=== PATIENT | female | born 1985 | race American Indian/Alaskan Native ===

== ENCOUNTER 2017-08-27 18:48 | Emergency (ER) | payer MEDICAID ==
[2017-08-27 19:47] VITALS: BP 138/91
[2017-08-27 20:40] LABS: Basophils # (Auto) 0.1 K/mm3 (0.0-0.1); Basophils % (Auto) 0.7 % (0.0-1.8); Eosinophils # (Auto) 0.1 K/mm3 (0.0-0.4); Eosinophils % (Auto) 1.2 % (0.0-4.3); Hematocrit 32.3 % (30.3-42.9); Hemoglobin 10.8 gm/dl (10.1-14.3); Lymphocytes # (Auto) 2.1 K/mm3 (1.2-5.4); Lymphocytes % (Auto) 26.9 % (13.4-35.0); Mean Corpuscular HGB Conc 33 % (30-34); Mean Corpuscular Hemoglobin 28 pg (28-32); Mean Corpuscular Volume 83 fl (79-97); Monocytes # (Auto) 0.4 K/mm3 (0.0-0.8); Monocytes % (Auto) 5.6 % (0.0-7.3); Platelet Count 268 K/mm3 (140-440); Red Cell Distribution Width 15.4 % (13.2-15.2)
[2017-08-27 20:48] LABS: BUN/Creatinine Ratio 10; Blood Urea Nitrogen 7 mg/dL (7-17); Calcium 8.6 mg/dL (8.4-10.2); Hemolysis Index 0
[2017-08-27 21:28] LABS: Erythrocyte Sedimentation Rate 15 mm/Hr (0-20)
--- NOTE | 2017-08-27 21:28 | Emergency Department Report ---
Blank Doc - Documentation Documentation: Dizziness E this patient [id number] patient's rash very consistent with pityriasis although in the differential syphilis and erythema multiforme. These are less likely given the fact that the patient has not had any viral illnesses recent medications and the fact that the rash is not hypoxic and soles
[2017-08-27 21:30] LABS: Bacteria,Urine 1+ /HPF (Negative); Bilirubin,Urine NEG (Negative); Blood,Urine NEG (Negative); Color,Urine Yellow (Yellow); Mucus,Urine 3+ /HPF; Protein,Urine <15 mg/dL mg/dL (Negative); RBC,Urine < 1.0 /HPF (0.0-6.0)
[2017-08-27] MEDS ORDERED: POTASSIUM CHLORIDE FEEDTUBE ONE (21:36)
[2017-08-27] MEDS ORDERED: DECADRON IM ONE (21:36)
[2017-08-27] MEDS ORDERED: K-DUR PO ONE ×2 (21:52→21:53)
--- NOTE | 2017-08-27 22:39 | Emergency Department Report ---
ED Rash HPI - HPI Chief Complaint: Skin Rash Stated Complaint: BREAKOUT OVER BODY Time Seen by Provider: 08/27/17 21:27 Duration: 1 month Location: Other (diffuse) Suspected Cause: Unknown Rash Symptoms: Yes Itching, No Facial Swelling, No Tongue/Oral Swelling, No Breathing Difficulties, No Choking Sensation, No Wheezing/Dyspnea, No Peeling, No Blistering, No Fever, No Lightheaded, No Malaise, No Myalgias Severity: moderate Other History: This is a 32-year-old female nontoxic, well nourished in appearance, no acute signs of distress presents to the ED with c/o of diffuse rash 1 month. Patient describes rash as itching. Patient denies any fever, chills, nausea, vomiting, headache or stiff neck. Patient denies any past medical history. Drug allergies includes amoxicillin. ED Review of Systems ROS: Stated complaint: BREAKOUT OVER BODY Other details as noted in HPI Constitutional: denies: chills, fever Eyes: denies: eye pain, eye discharge, vision change ENT: denies: ear pain, throat pain Respiratory: denies: cough, shortness of breath, wheezing Cardiovascular: denies: chest pain, palpitations Endocrine: no symptoms reported Gastrointestinal: denies: abdominal pain, nausea, diarrhea Genitourinary: denies: urgency, dysuria, discharge Musculoskeletal: denies: back pain, joint swelling, arthralgia Skin: rash. denies: lesions Neurological: denies: headache, weakness, paresthesias Psychiatric: denies: anxiety, depression Hematological/Lymphatic: denies: easy bleeding, easy bruising ED Past Medical Hx - Past Medical History Previous Medical History?: No - Surgical History Past Surgical History?: Yes Additional Surgical History: Appy - Social History Smoking Status: Current Every Day Smoker Substance Use Type: None - Medications Home Medications: Home Medications Medication Instructions Recorded Confirmed Last Taken Type Prednisone [predniSONE 10 mg 10 mg PO .TAPER #1 tab.ds.pk 08/27/17 Unknown Rx (6-Day Pack, 21 Tabs)] diphenhydrAMINE [Benadryl CAP] 25 mg PO Q6HR PRN #30 capsule 08/27/17 Unknown Rx Rash Exam - Exam General: Vital signs noted. No distress. Alert and acting appropriately. HEENT: No Periorbital Edema, No Conjuctival Injection, No Chemosis, No Perioral Edema, No Tongue Edema, No Uvular Edema, No Compromised Airway, No Drooling Lungs: Yes Good Air Exchange (Normal Breath Sounds), No Wheezes, No Ronchi, No Stridor, No Cough, No Labored Respirations, No Retractions, No Use of Accessory Muscles, No Other Abnormal Lung Sounds Heart: Yes Regular, No Murmur Skin: Yes Morbilliform rash, Yes Encrustations, Yes Other (emir patch with [place] tree parents in the back), No Urticarial Rash, No Maculopapular Rash, No Bulla(e), No Excoriations, No Weeping, No Tenderness, No Erythema, No Edema Other: Positive: Abdomen Normal, Neurologic Normal, Musculoskeletal Normal ED Course Vital Signs 08/27/17 08/27/17 19:41 19:52 Temperature 98.2 F 98.2 F Pulse Rate 101 H 101 H Respiratory 18 18 Rate Blood Pressure 138/91 138/91 O2 Sat by Pulse 100 100 Oximetry - Reevaluation(s) Reevaluation #1: 08/27/17 22:40 Patient is speaking in full sentences with no signs of distress noted. - Consultations Consultation #1: 08/27/17 22:40 Patient has been consulted with Dr. Sánchez about patient history, physical exam , and labs and examined and screened patient and agrees to ED plan of care and discharge plan of care. ED Medical Decision Making - Lab Data Result diagrams: 08/27/17 20:25 08/27/17 20:25 - Medical Decision Making This is a 32-year-old female that presents with pityriasis rosea. Patient is stable and was examined by me and Dr. Sánchez. The rash does appear to have a Emir patch looking with a Madonna tree in appearance. Patient did receive Decadron in the ED' discharge with Benadryl and prednisone dosepak. Patietn stated ahs been taking Grisefulum with no relief cream. Labs obtained and within normal limits with slight hypokalemai. Patient receveid K+ 40 meq. RPR pending. Patient was instructed referred to Follow-up with a primary care/ retail wireless sales consultant doctor in 3-5 days or if symptoms worsen and continue return to emergency room as soon as possible. At time of discharge, the patient does not seem toxic or ill in appearance. No acute signs of distress noted. Patient agrees to discharge treatment plan of care. No further questions noted by the patient. Critical care attestation.: If time is entered above; I have spent that time in minutes in the direct care of this critically ill patient, excluding procedure time. ED Disposition Clinical Impression: Pityriasis rosea Disposition: DC- TO HOME OR SELFCARE Is pt being admited?: No Does the pt Need Aspirin: No Condition: Stable Instructions: Pityriasis rosea (ED), Prednisone (By mouth), Diphenhydramine ( By mouth) Additional Instructions: Follow-up with a primary care/retail wireless sales consultant doctor in 3-5 days or if symptoms worsen and continue return to emergency room as soon as possible. A Prescriptions: diphenhydrAMINE [Benadryl CAP] 25 mg PO Q6HR PRN #30 capsule PRN Reason: Itching Prednisone [predniSONE 10 mg (6-Day Pack, 21 Tabs)] 10 mg PO .TAPER #1 tab.ds.pk Referrals: ALAINA PATHAK MD [Primary Care Provider] - 3-5 Days PRIMARY CAREMD [Referring] - 3-5 Days ORLANDO KANG MD [Staff Physician] - 3-5 Days [facility] [Outside] - 3-5 Days Forms: Work/School Release Form(ED)
== END 2017-08-27 23:00 | disposition home or self-care (01) ==
LOC: ED 18:48
DX: L42 Pityriasis rosea (principal); F17.200 Nicotine dependence, unspecified, uncomplicated; Z88.1 Allergy status to other antibiotic agents
CPT/HCPCS: 36415; 80048; 81001; 84703; 85025; 85652; 86140; 86592; 96372; 99283; J1100